=== PATIENT | female | born 1950 | race Caucasian/White ===

== ENCOUNTER 2017-09-19 16:00 | Outpatient (RCR) | payer MEDICARE, OTHER ==
[~2017-09-19 16:00] MED LIST: ASPI-715 PO; MULT1CAP59 PO; OXYC-865 PO; VIT1CAPS34 PO
[2017-09-19 16:10] VITALS: BP 130/76
[2017-09-19] MEDS ORDERED: ASPI-1471 PO (16:14)
--- NOTE | 2017-09-19 17:06 | ONCOLOGY FOLLOW UP NOTE ---
EVENT DATE: September 19, 2017 DIAGNOSIS Monoclonal gammopathy of undetermined significance (MGUS). CHIEF COMPLAINT The patient is here today for follow up of her monoclonal gammopathy of undetermined significance (MGUS). HEMATOLOGY/ONCOLOGY HISTORY The patient is a 67-year-old female with presented with a lymph node in the posterior left neck and night sweats. Biopsy was tried, but no lymph node was found. Given her evaluation, the patient was found to have a tiny M-protein by serum protein electrophoresis (SPEP) of IgG kappa. Free light chain essay revealed normal kappa and lambda. Free light chain in the serum. A 24-hour urine protein electrophoresis (UPEP) with immunofixation was negative for M- protein. CT scan chest, chest and pelvis were negative for lymphadenopathy. Skeletal bone survey done on January 29, 2013 showed an 8 mm lucency in the occipital portion of the skull which was nonspecific. HISTORY OF PRESENT ILLNESS Patient is here today for followup of her MGUS. Patient is doing fine currently except for pain in her knees. She has also some neuropathy in her fingers and bottom of the feet. PAST MEDICAL HISTORY Insignificant except for: 1. Monoclonal gammopathy of undetermined significance (MGUS). 2. Possible multiple sclerosis with asymptomatic disease, but with abnormal brain scan. PAST SURGICAL HISTORY Fractured bones in the past. SOCIAL HISTORY She is with two sons and one daughter. 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 No abuse of tobacco. She has never smoked. She has about four drinks per week, usually beer. No abuse of illicit drugs. FAMILY HISTORY A sister with colon cancer at the age of 65. Mother had carcinoid tumor, bladder cancer, and colon cancer. Another sister with carcinoid tumor at the age of 57 years. Father had parotid gland cancer. MEDICATIONS None. ALLERGIES No known drug allergies REVIEW OF SYSTEMS CONSTITUTIONAL: No appetite or weight change. No fever, chills or sweating. No recent infection. HEENT: Ears: No tinnitus or hearing problem. Nose: No nasal discharge or epistaxis. Throat: No sore throat or mouth ulcers. Eyes: No diplopia or visual changes. RESPIRATORY: No shortness of breath. No cough, expectoration or hemoptysis. CARDIOVASCULAR: No chest pain, orthopnea, or paroxysmal nocturnal dyspnea (PND) . No edema. No palpitations. GASTROINTESTINAL: No nausea or vomiting. No diarrhea or constipation. No change in bowel movements. No heartburn or swallowing difficulties. No abdominal pain. No jaundice. No hematemesis, melena or rectal bleeding. GENITOURINARY: No hematuria or dysuria. MUSCULOSKELETAL: She has pain in the knees. NEUROLOGICAL: She has tingling and numbness in the hands and in the bottom of the feet. HEMATOLOGIC/LYMPHATIC: No bleeding or easy bruising. No weakness or fatigue. No enlarged lymph nodes. SKIN: No skin rash or lumps. PSYCHIATRIC: No anxiety or depression. PHYSICAL EXAMINATION GENERAL: Looks stable. Well-developed, well-nourished, and in no acute distress. VITAL SIGNS: Blood pressure 130/76, pulse 65 per minute, respirations 16 per minute, temperature 96.7, pulse oximetry 97% on room air. HEENT: Head: Atraumatic. No sinus tenderness to palpation. Eyes: No icterus or conjunctivitis. Mouth and Throat: No oral thrush or mucositis. NECK: Supple. No cervical or supraclavicular lymphadenopathy. LUNGS: Clear to auscultation and percussion bilaterally. HEART: Regular rate and rhythm. No gallops, murmurs, clicks or rubs. ABDOMEN: Soft and lax. No tenderness. No hepatosplenomegaly. No masses. EXTREMITIES: No cyanosis, clubbing or edema. LYMPHATICS: No peripheral lymphadenopathy. NEUROLOGICAL: Conscious, alert and oriented times three. No focal motor or sensory deficits. PSYCHIATRIC: Mood and affect appear normal. SKIN: No skin rash, bruise or purpuric eruption. DIAGNOSTIC DATA CBC showed white count 4.8, hemoglobin 14.4, hematocrit 42.5, platelets 245, 000. Chem panel totally normal except creatinine 1.04. Beta-2 microglobulin is normal at 2.3. IgG level is 543. IgA level is normal at 134. IgM level is low at 22. There was a monoclonal band of IgG kappa measured at 0.2 g/dL. ASSESSMENT 1. Monoclonal gammopathy of undetermined significance (MGUS) with IgG kappa. Current M-protein spike is 0.2 g/dL of IgG kappa, which is nearly stable. Her last M-protein was 0.1 g/dL in 2016. I am planning to continue followup. I will see her again in six months with CBC, chem panel, LDH, uric acid and myeloma profile. Patient did not show for some time, but she is doing fine currently, and apart from having mild neuropathy, patient does not have any other problem with her MGUS. 2. Multiple colonic polyps of tubular adenoma and only one polyp in the distal transverse colon showed tubular adenoma with minor villous component. She was tested for Olson syndrome because of her positive family history of colon cancer and it was negative. Patient is followed by podiatrist orthopedic. 3. Ovarian cyst, followed by taxicab starter. PLAN 1. Continue followup. 2. The patient to return in six months with CBC, chem panel, LDH, uric acid and myeloma profile. 3. The patient to contact us for any new concern or complaints. CARLOSD
== END 2017-10-08 10:36 | disposition home or self-care (01) ==
LOC: ONC 16:00
PROVIDERS: ATTEND Internal Medicine Hematology
DX: D47.2 Monoclonal gammopathy (principal); G62.9 Polyneuropathy, unspecified; N83.209 Unspecified ovarian cyst, unspecified side
CPT/HCPCS: 99212

== ENCOUNTER 2017-10-23 02:41 | Day surgery (SDC) | payer MEDICARE, OTHER ==
[~2017-10-23] VITALS: Ht 172.7 cm; Wt 59.0 kg
[~2017-10-23 02:41] MED LIST changes: +ASPI-1471 PO
[2017-10-23] MEDS ORDERED: PROPOFOL EMUL(*) 10MG/ML 20 ML 20 ML ONE (07:20)
[2017-10-23 11:30] VITALS: BP 120/72
[2017-10-23] MEDS ORDERED: NORMOSOL R SOLN(*) 1000 ML BAG 1,000 ML IV PRN (11:50)
[2017-10-23] MEDS ORDERED: LIDOCAINE/SOD BICARB 8.4% SYR ID ONE (11:50)
[2017-10-23 14:03] VITALS: BP 98/64
--- NOTE | 2017-10-23 14:05 | Short(Outpt) Discharge Summary ---
Discharge Summary Reason for Hosp/Final Diag: (1) History of colon polyps Status: Chronic Hospital Course & Plan: Colonoscopy with polypectomy x2 completed without problems. (2) Family history of malignant neoplasm of gastrointestinal tract Departure Discharge to: Home, Self Care Discharge Instructions Home Meds Reported Medications Aspirin (ASPIR 81) 81 Mg Tablet.dr, 81 MG PO QDAY, TAB 09/19/17 Vit A/Vit C/Vit E/Zinc/Copper (PRESERVISION AREDS SOFTGEL) 1 Each Capsule, 1 EACH PO BID, CAPSULE 05/10/17 Diet: Regular Activity: As Tolerated Special Instructions: Your colonoscopy was completed without problems and your prep was excellent (Good Job!!). I removed 2 small polyps from your colon and they were sent to pathology. My office will call you in the next week or so to let you know what the polyps are but, in any case, your next colonoscopy should be in 5 years. BRODIE SCHAFER MD Oct 23, 2017 14:05
[2017-10-23 14:15] VITALS: BP 111/66
[2017-10-23 14:19] VITALS: BP 111/65
[2017-10-23 14:22] VITALS: BP 113/72
== END 2017-10-23 14:43 | disposition home or self-care (01) ==
LOC: OR 02:41
PROVIDERS: ATTEND Surgery
DX: Z12.11 Encounter for screening for malignant neoplasm of colon (principal); Z80.0 Family history of malignant neoplasm of digestive organs; K63.5 Polyp of colon
CPT/HCPCS: 00811; 45385; 88305; J2704

== ENCOUNTER 2018-03-14 07:10 | Outpatient (RCR) | payer MEDICARE, OTHER ==
[2018-03-14 08:03] VITALS: BP 123/70
--- NOTE | 2018-03-14 22:16 | ONCOLOGY FOLLOW UP NOTE ---
EVENT DATE: March 14, 2018 DIAGNOSIS Monoclonal gammopathy of undetermined significance (MGUS). CHIEF COMPLAINT The patient is here today for follow up of her monoclonal gammopathy of undetermined significance. HEMATOLOGY/ONCOLOGY HISTORY The patient is a 68-year-old female who presented with a lymph node in the posterior left neck and night sweats. Biopsy was tried, but no lymph node was found. Given her evaluation, the patient was found to have a tiny M protein by serum protein electrophoresis (SPEP) of IgG kappa. Free light chain essay revealed normal kappa and lambda free light chains in the serum. A 24-hour urine protein electrophoresis (UPEP) with immunofixation was negative for M protein. CT scan chest, abdomen, and pelvis was negative for lymphadenopathy. Skeletal bone survey done on January 29, 2013, showed an 8 mm lucency in the occipital portion of the skull which was nonspecific. HISTORY OF PRESENT ILLNESS Patient is here today for followup of her MGUS. She is doing fine currently except she has pain in her knees, and she received stem cell recently as a treatment. She has also neuropathy in her feet. Other than that, she is really doing very well. PAST MEDICAL HISTORY Insignificant except for: 1. Monoclonal gammopathy of undetermined significance (MGUS). 2. Possible multiple sclerosis with asymptomatic disease, but with abnormal brain scan. PAST SURGICAL HISTORY Fractured bones in the past. SOCIAL HISTORY She is with two sons and one daughter. 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 No abuse of tobacco. She has never smoked. She has about four drinks per week, usually beer. No abuse of illicit drugs. FAMILY HISTORY A sister with colon cancer at the age of 65. Mother had carcinoid tumor, bladder cancer, and colon cancer. Another sister with carcinoid tumor at the age of 57 years. Father had parotid gland cancer. MEDICATIONS None. ALLERGIES No known drug allergies REVIEW OF SYSTEMS CONSTITUTIONAL: No appetite or weight change. No fever, chills, or sweating. No recent infection. HEENT: Ears: No tinnitus or hearing problem. Nose: No nasal discharge or epistaxis. Throat: No sore throat or mouth ulcers. Eyes: No diplopia or visual changes. RESPIRATORY: No shortness of breath. No cough, expectoration, or hemoptysis. CARDIOVASCULAR: No chest pain, orthopnea, or paroxysmal nocturnal dyspnea (PND). No edema. No palpitations. GASTROINTESTINAL: No nausea or vomiting. No diarrhea or constipation. No change in bowel movements. No heartburn or swallowing difficulties. No abdominal pain. No jaundice. No hematemesis, melena, or rectal bleeding. GENITOURINARY: No hematuria or dysuria. MUSCULOSKELETAL: She has pain in the knees. NEUROLOGICAL: She has neuropathy in her feet. No headaches or convulsions. HEMATOLOGIC/LYMPHATIC: No bleeding or easy bruising. No weakness or fatigue. No enlarged lymph nodes. SKIN: No skin rash or lumps. PSYCHIATRIC: No anxiety or depression. PHYSICAL EXAMINATION GENERAL: Looks stable. Well developed, well nourished, and in no acute distress. VITAL SIGNS: Blood pressure 123/70, pulse 66 per minute, respirations 16 per minute, temperature 96.8, pulse ox 96% on room air. HEENT: Head: Atraumatic. No sinus tenderness to palpation. Eyes: No icterus or conjunctivitis. Mouth and Throat: No oral thrush or mucositis. NECK: Supple. No cervical or supraclavicular lymphadenopathy. LUNGS: Clear to auscultation and percussion bilaterally. HEART: Regular rate and rhythm. No gallops, murmurs, clicks, or rubs. ABDOMEN: Soft and lax. No tenderness. No hepatosplenomegaly. No masses. EXTREMITIES: No cyanosis, clubbing, or edema. LYMPHATICS: No peripheral lymphadenopathy. NEUROLOGICAL: Conscious, alert, and oriented times three. No focal motor or sensory deficits. PSYCHIATRIC: Mood and affect appear normal. SKIN: No skin rash, bruise, or purpuric eruption. DIAGNOSTIC DATA CBC showed white count 4.8, hemoglobin 15.6, hematocrit 43.3, platelets 294,000. IgG is 555. IgA is 138. IgM level is 30. She has monoclonal spike of IgG kappa at 0.1 g/dL. Weaver free light chain is 24.8. Lambda free light chain is 12.4. The kappa to lambda free light chain ratio is 2. ASSESSMENT 1. Monoclonal gammopathy of undetermined significance with IgG kappa. Current M protein is 0.1 g/dL of IgG kappa, which is stable. Her last M protein was 0.2 g/dL. Patient is doing fine currently. I am planning to continue followup. I will see her again in six months with CBC, chem panel, LDH, uric acid, and myeloma profile. 2. Multiple colonic polyps of tubular adenoma, and only one polyp in the distal transverse colon showed tubular adenoma with minor villous component. Patient was tested for Olson syndrome because of her positive family history of colon cancer, and it was negative. Patient is followed by her station jailer. 3. Ovarian cyst, followed by castings drafter. PLAN 1. Continue followup. 2. Patient to return in six months with CBC, chem panel, LDH, uric acid, and myeloma profile. 3. Patient to contact us for any new concern or complaints. SHELLEY
== END 2018-03-26 13:28 | disposition home or self-care (01) ==
LOC: ONC 07:10
PROVIDERS: ATTEND Internal Medicine Hematology
DX: D47.2 Monoclonal gammopathy (principal); G62.9 Polyneuropathy, unspecified; N83.209 Unspecified ovarian cyst, unspecified side
CPT/HCPCS: 99212

== ENCOUNTER → 2018-06-12 | Outpatient (REF) | payer MEDICARE, OTHER | LOC: ZZSENDIN 14:29 | PROVIDERS: ATTEND Nurse Practitioner Family | DX: E72.12 Methylenetetrahydrofolate reductase deficiency (principal); D68.9 Coagulation defect, unspecified | CPT/HCPCS: 85379 ==

== ENCOUNTER → 2018-06-12 | Outpatient (CLI) | payer MEDICARE, OTHER ==
--- NOTE | 2018-06-12 16:41 | RADIOLOGY IMAGING REPORT ---
FACILITY: [facility] PATIENT NAME: Ina Booker : 1950 MR: [id number] V: [id number] EXAM DATE: ORDERING PHYSICIAN: MICK HERNANDEZ TECHNOLOGIST: [place] [facility] [place]a [place] : 1950 Visit/Account:[id number] Date of Sevice: 06/12/2018 ABDOMINAL AORTIC ULTRASOUND: INDICATION: Pulsation COMPARISON: CT abdomen pelvis 01/06/2013 report FINDINGS: The suprarenal abdominal aorta measures 2.4 x 2.8 cm in AP and transverse dimensions respec tively. The superior infrarenal abdominal aorta measures 1.8 x 2.1 cm in AP and transverse dimensions respectively. The mid infrarenal abdominal aorta measures 1.4 x 2.0 cm in AP and transverse dimensio ns respectively. The inferior infrarenal abdominal aorta measures 1.7 x 1.9 cm in AP and transverse d imensions respectively. Right common iliac artery measures 1.0 cm and the left common iliac artery measures 0.7 cm. The IVC appears patent. IMPRESSION: 1. No evidence of abdominal aortic aneurysm. Report Dictated By: Duke Valadez DO at 06/12/2018 4:20 PM Report E-Signed By: Duke Valadez DO at 06/12/2018 4:23 PM WSN:[id number]
== END ==
LOC: US 15:31
PROVIDERS: ATTEND Nurse Practitioner Family
DX: R19.8 Other specified symptoms and signs involving the digestive system and abdomen (principal)
CPT/HCPCS: 93979

== ENCOUNTER 2018-09-10 18:40 | Outpatient (RCR) | payer MEDICARE, OTHER ==
[2018-09-11 13:06] VITALS: BP 124/77
--- NOTE | 2018-09-12 00:14 | [facility] ONCOLOGY NOTE ---
EVENT DATE: September 11, 2018 DIAGNOSIS Monoclonal gammopathy of undetermined significance (MGUS). CHIEF COMPLAINT The patient is here today for follow up of her monoclonal gammopathy of undetermined significance. HEMATOLOGY HISTORY The patient is a 68-year-old female who presented with a lymph node in the posterior left neck and night sweats. Biopsy was tried, but no lymph node was found. Given her evaluation, the patient was found to have a tiny M protein by serum protein electrophoresis (SPEP) of IgG kappa. Free light chain assay revealed normal kappa and lambda free light chains in the serum. A 24-hour urine protein electrophoresis (UPEP) with immunofixation was negative for M protein. CT scan chest, abdomen, and pelvis was negative for lymphadenopathy. Skeletal bone survey done on January 29, 2013, showed an 8 mm lucency in the occipital portion of the skull which was nonspecific. HISTORY OF PRESENT ILLNESS Patient is here today for followup of her MGUS. She is doing really very well except for having pain in her knees, and patient is planned to have bilateral knee replacements soon. PAST MEDICAL HISTORY Insignificant except for: 1. Monoclonal gammopathy of undetermined significance (MGUS). 2. Possible multiple sclerosis with asymptomatic disease, but with abnormal brain scan. PAST SURGICAL HISTORY Fractured bones in the past. SOCIAL HISTORY She is with two sons and one daughter. 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 No abuse of tobacco. She has never smoked. She has about four drinks per week, usually beer. No abuse of illicit drugs. FAMILY HISTORY A sister with colon cancer at the age of 65. Mother had carcinoid tumor, bladder cancer, and colon cancer. Another sister with carcinoid tumor at the age of 57 years. Father had parotid gland cancer. MEDICATIONS None. ALLERGIES No known drug allergies REVIEW OF SYSTEMS CONSTITUTIONAL: No appetite or weight change. No fever, chills or sweating. No recent infection. HEENT: Ears: No tinnitus or hearing problem. Nose: No nasal discharge or epistaxis. Throat: No sore throat or mouth ulcers. Eyes: No diplopia or visual changes. RESPIRATORY: No shortness of breath. No cough, expectoration or hemoptysis. CARDIOVASCULAR: No chest pain, orthopnea, or paroxysmal nocturnal dyspnea (PND). No edema. No palpitations. GASTROINTESTINAL: No nausea or vomiting. No diarrhea or constipation. No change in bowel movements. No heartburn or swallowing difficulties. No abdominal pain. No jaundice. No hematemesis, melena or rectal bleeding. GENITOURINARY: No hematuria or dysuria. MUSCULOSKELETAL: She has pain in the knees, and the patient is planned to have bilateral knee replacement soon. NEUROLOGICAL: No tingling or numbness in the hands or feet. No headaches or convulsions. HEMATOLOGIC/LYMPHATIC: No bleeding or easy bruising. No weakness or fatigued. No enlarged lymph nodes. SKIN: No skin rash or lumps. PSYCHIATRIC: No anxiety or depression. PHYSICAL EXAMINATION GENERAL: Looks stable. Well-developed, well-nourished, and in no acute distress. VITAL SIGNS: Blood pressure 124/77, pulse 72 per minute, respiration 16 per minute, temperature 97.6, pulse ox 100% on room air. HEENT: Head: Atraumatic. No sinus tenderness to palpation. Eyes: No icterus or conjunctivitis. Mouth and throat: No oral thrush or mucositis. NECK: Supple. No cervical or supraclavicular lymphadenopathy. LUNGS: Clear to auscultation and percussion bilaterally. HEART: Regular rate and rhythm. No gallops, murmurs, clicks or rubs. ABDOMEN: Soft and lax. No tenderness. No hepatosplenomegaly. No masses. EXTREMITIES: No cyanosis, clubbing or edema. LYMPHATICS: No peripheral lymphadenopathy. NEUROLOGICAL: Conscious, alert and oriented times three. No focal motor or sensory deficits. PSYCHIATRIC: Mood and affect appear normal. SKIN: No skin rash, bruise or purpuric eruption. DIAGNOSTIC DATA Chem panel is totally normal except blood sugar 105. Uric acid is normal at 0.4. Beta-2 microglobulin is normal at 1.9. LDH is normal at 154. Serum protein electrophoresis did reveal a monoclonal protein of IgG kappa. The M- spike is 0.1 g/dL. Her free kappa light chain is 19.5 mg/L. ASSESSMENT 1. Monoclonal gammopathy of undetermined significance with IgG kappa. Current M protein level is 0.1 g/dL of IgG kappa, which is stable. Patient is doing really very well. am planning to continue followup. I will see her again in a year, per her request, with CBC, chem panel, LDH, uric acid, and myeloma profile. 2. Multiple colonic polyps of tubular adenoma, and only one polyp in the distal transverse colon showed tubular adenoma with minor villous component. Patient was tested for Olson syndrome because of her positive family history of colon cancer, and it was negative. She is followed by her signal maintenance technician. 3. Ovarian cyst, followed by pesticide applicator. PLAN 1. Continue followup. 2. Patient to return in one year with CBC, chem panel, LDH, uric acid, and myeloma profile. 3. Patient to contact us for any new concern or complaints. SHELLEY
== END 2018-09-29 13:21 | disposition home or self-care (01) ==
LOC: ONC 18:40
PROVIDERS: ATTEND Internal Medicine Hematology
DX: D47.2 Monoclonal gammopathy (principal); G62.9 Polyneuropathy, unspecified; N83.209 Unspecified ovarian cyst, unspecified side; D12.6 Benign neoplasm of colon, unspecified
CPT/HCPCS: 99212

== ENCOUNTER 2018-12-16 14:08 | Emergency (ER) | payer MEDICARE, OTHER ==
[2018-12-16] MEDS ORDERED: DIPHTH/TETANUS/ACEL. PERTUSSIS IM ONLY ONE (14:25)
[2018-12-16] MEDS ORDERED: ONDANSETRON 4 MG/2 ML VIAL IVP ONE (14:25)
[2018-12-16] MEDS ORDERED: MORPHINE 4 MG/ML SDV IVP ONE ×2 (14:25→16:40)
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
[2018-12-16 14:53] LABS: PLATELET COUNT, AUTOMATED 284 K/uL (150-450)
[2018-12-16] MEDS ORDERED: NS(*) 0.9% 1000 ML BAG 1,000 ML IV ONE (15:00)
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
[2018-12-16 17:30] VITALS: BP 133/68
[2018-12-16] MEDS ORDERED: ONDA4TAB97 PO (17:51)
[2018-12-16] MEDS ORDERED: HYDR-385 PO (17:51)
== END 2018-12-16 18:46 | disposition home or self-care (01) ==
LOC: ER 14:29
DX: S06.0X9A Concussion with loss of consciousness of unspecified duration, initial encounter (principal); S52.571A Other intraarticular fracture of lower end of right radius, initial encounter for closed fracture; S52.611A Displaced fracture of right ulna styloid process, initial encounter for closed fracture; S01.81XA Laceration without foreign body of other part of head, initial encounter; V18.0XXA Pedal cycle driver injured in noncollision transport accident in nontraffic accident, initial encounter; Y93.55 Activity, bike riding
CPT/HCPCS: 12011; 29125; 70450; 71045; 72125; 73200; 85025; 90471; 90715; 96374; 99284; A4565; J2270; J7030; L0172; 82040; 82247; 82310; 82374; 82435; 82565; 82947; 84075; 84132; 84155; 84295; 84450; 84460; 84520